=== PATIENT | male | born 1995 | race Caucasian/White ===

== ENCOUNTER 2018-03-24 13:20 | Emergency (ER) | payer BC ==
[2018-03-24 13:28] VITALS: RESP 18
[2018-03-24] MEDS ORDERED: SODIUM CHLORIDE 0.9% 1,000 ML IV STA (14:25)
[2018-03-24] MEDS ORDERED: PANTOPRAZOLE 40 MG/10 ML VIAL IVP STA (14:43)
[2018-03-24 15:17] LABS: Basophils # (A) 0.1 k/uL (0-0.2); Basophils % (A) 1 %; Eosinophils # (A) 0.3 k/uL (0-0.7); Eosinophils % (A) 4 %; HCT 49.9 % (39.0-53.0); HGB 16.7 gm/dL (13.0-17.5); Lymphocytes # (A) 1.5 k/uL (1.0-4.8); Lymphocytes % (A) 19 %; MCH 32.9 pg (25.0-35.0); MCHC 33.5 g/dL (31.0-37.0); MCV 98.1 fL (80.0-100.0); Mean Platelet Volume 6.7; Monocytes # (A) 0.6 k/uL (0-1.0); Monocytes % (A) 7 %; Neutrophils # (A) 5.4 k/uL (1.3-7.7); Neutrophils % (A) 67 %; Platelet Count 293 k/uL (150-450); RBC 5.09 m/uL (4.30-5.90); RDW 12.5 % (11.5-15.5)
[2018-03-24 15:31] LABS: ALT 161 U/L (21-72); AST 135 U/L (17-59); Albumin 4.6 g/dL (3.5-5.0); Alkaline Phosphatase 55 U/L (38-126); Amylase 46 U/L (30-110); Anion Gap 9 mmol/L; Blood Urea Nitrogen 11 mg/dL (9-20); Calcium 9.8 mg/dL (8.4-10.2); Carbon Dioxide 25 mmol/L (22-30); Chloride 107 mmol/L (98-107); Glucose 110 mg/dL (74-99); Lipase 97 U/L (23-300); Potassium 4.7 mmol/L (3.5-5.1); Sodium 141 mmol/L (137-145); Total Bilirubin 0.5 mg/dL (0.2-1.3); Total Protein 7.5 g/dL (6.3-8.2)
--- NOTE | 2018-03-24 16:10 | ED ---
General Adult HPI - General Chief complaint: GI Bleed Stated complaint: Blood in Stool Time Seen by Provider: 03/24/18 14:08 Source: patient, RN notes reviewed Mode of arrival: ambulatory Limitations: no limitations - History of Present Illness Initial comments: 23-year-old male presents to the emergency department for a chief complaint of vomiting blood. Patient states he drank too much alcohol last night. He states this morning he vomited twice. He states that after the second vomit he had some blood in his vomit. Patient states that it was about the amount of half a NyQuil. It was a dark red color. Patient admits he had dark stools 5 days ago but he has had these stools on and off for the past 15 years. Patient denies any abdominal pain. He denies any chest pain as well. Patient has no other complaints at this time including shortness of breath, chest pain, abdominal pain, headache, or visual changes. - Related Data Previous Rx's Medication Instructions Recorded Pantoprazole Sodium [Protonix] 20 mg PO BID #14 tablet. 03/24/18 Allergies Allergy/AdvReac Type Severity Reaction Status Date / Time No Known Allergies Allergy Verified 03/24/18 14:07 Review of Systems ROS Statement: Those systems with pertinent positive or pertinent negative responses have been documented in the HPI. ROS Other: All systems not noted in ROS Statement are negative. Past Medical History Past Medical History: No Reported History History of Any Multi-Drug Resistant Organisms: None Reported Past Surgical History: No Surgical Hx Reported Past Psychological History: No Psychological Hx Reported Smoking Status: Never smoker Past Alcohol Use History: Occasional Past Drug Use History: None Reported General Exam Limitations: no limitations General appearance: alert, in no apparent distress Head exam: Present: atraumatic, normocephalic, normal inspection Eye exam: Present: normal appearance, PERRL, EOMI. Absent: scleral icterus, conjunctival injection, periorbital swelling ENT exam: Present: normal exam, mucous membranes moist Neck exam: Present: normal inspection, full ROM. Absent: tenderness, meningismus, lymphadenopathy Respiratory exam: Present: normal lung sounds bilaterally. Absent: respiratory distress, wheezes, rales, rhonchi, stridor Cardiovascular Exam: Present: regular rate, normal rhythm, normal heart sounds. Absent: systolic murmur, diastolic murmur, rubs, gallop, clicks GI/Abdominal exam: Present: soft, normal bowel sounds. Absent: distended, tenderness, guarding, rebound, rigid Course Vital Signs 03/24/18 13:24 Temperature 99.3 F Pulse Rate 105 H Respiratory 18 Rate Blood Pressure 141/104 O2 Sat by Pulse 95 Oximetry Medical Decision Making - Medical Decision Making 23-year-old male presents to the emergency department for a chief complaint of hematemesis. Patient had one episode of vomiting dark red blood earlier today after a night of consuming alcohol. This was a small amount. Patient has a history of black stools with scissors has been ongoing for quite some time. CBC and CMP are unremarkable. Mild transaminitis likely related to alcohol consumption. Vitals are within physical limits. Patient is hemodynamically stable. Patient was given Protonix here in the emergency department. He will be given a prescription for home. He will return here if he has any worsening symptoms. He will follow up with GI in 1-2 days. - Lab Data Result diagrams: 03/24/18 15:00 03/24/18 15:00 Lab Results 03/24/18 03/24/18 Range/Units 15:00 15:00 WBC 8.0 (3.8-10.6) k/uL RBC 5.09 (4.30-5.90) m/uL Hgb 16.7 (13.0-17.5) gm/dL Hct 49.9 (39.0-53.0) % MCV 98.1 (80.0-100.0) fL MCH 32.9 (25.0-35.0) pg MCHC 33.5 (31.0-37.0) g/dL RDW 12.5 (11.5-15.5) % Plt Count 293 (150-450) k/uL Neutrophils % 67 % Lymphocytes % 19 % Monocytes % 7 % Eosinophils % 4 % Basophils % 1 % Neutrophils # 5.4 (1.3-7.7) k/uL Lymphocytes # 1.5 (1.0-4.8) k/uL Monocytes # 0.6 (0-1.0) k/uL Eosinophils # 0.3 (0-0.7) k/uL Basophils # 0.1 (0-0.2) k/uL Sodium 141 (137-145) mmol/L Potassium 4.7 (3.5-5.1) mmol/L Chloride 107 (98-107) mmol/L Carbon Dioxide 25 (22-30) mmol/L Anion Gap 9 mmol/L BUN 11 (9-20) mg/dL Creatinine 0.89 (0.66-1.25) mg/dL Est GFR (CKD-EPI)AfAm >90 (>60 ml/min/1.73 sqM) Est GFR (CKD-EPI)NonAf >90 (>60 ml/min/1.73 sqM) Glucose 110 H (74-99) mg/dL Calcium 9.8 (8.4-10.2) mg/dL Total Bilirubin 0.5 (0.2-1.3) mg/dL AST 135 H (17-59) U/L ALT 161 H (21-72) U/L Alkaline Phosphatase 55 (38-126) U/L Total Protein 7.5 (6.3-8.2) g/dL Albumin 4.6 (3.5-5.0) g/dL Amylase 46 (30-110) U/L Lipase 97 (23-300) U/L Disposition Clinical Impression: Hematemesis Disposition: HOME SELF-CARE Condition: Good Instructions (If sedation given, give patient instructions): Gastrointestinal Bleeding (ED) Additional Instructions: Please take prescription as directed. Please follow up with GI in 1-2 days. Please return to the emergency department if you have any worsening symptoms. Prescriptions: Pantoprazole Sodium [Protonix] 20 mg PO BID #14 tablet.dr Is patient prescribed a controlled substance at d/c from ED?: No Referrals: Wan Choi MD [STAFF PHYSICIAN] - 1-2 days Time of Disposition: 16:09
[2018-03-24 16:53] VITALS: BP 137/91; PULSE 80; TEMP 97.6
== END 2018-03-24 16:58 | disposition home or self-care (01) ==
LOC: EC 13:20
DX: K92.0 Hematemesis (principal); R74.0 Nonspecific elevation of levels of transaminase and lactic acid dehydrogenase [LDH]; Z87.19 Personal history of other diseases of the digestive system
CPT/HCPCS: 36415; 80053; 82150; 83690; 85025; 99284; 96374; 96361 ×2; C9113

== ENCOUNTER → 2019-09-30 | Outpatient (CLI) | payer BC | END | disposition home or self-care (01) | LOC: LABWHC1 11:43 | PROVIDERS: ATTEND Emergency Medicine | DX: Z20.828 Contact with and (suspected) exposure to other viral communicable diseases (principal) | CPT/HCPCS: U0003; C9803 ==

== ENCOUNTER 2022-02-09 18:44 | Emergency (ER) | payer BC ==
[2022-02-09] MEDS ORDERED: ACETAMINOPHEN TAB 500 MG TAB PO STA (19:41)
[2022-02-09] MEDS ORDERED: SODIUM CHLORIDE 0.9% 1,000 ML IV STA (19:41)
[2022-02-09] MEDS ORDERED: PANTOPRAZOLE 40 MG/10 ML VIAL IVP STA (19:42)
[2022-02-09] MEDS ORDERED: FAMOTIDINE 20 MG TAB PO STA (19:42)
[2022-02-09 20:12] LABS: Appearance,Urine Clear (Clear); Bilirubin,Urine Negative (Negative); Blood,Urine Negative (Negative); Color,Urine Yellow; Glucose,Urine (UA) Negative (Negative); Ketones,Urine Negative (Negative); Leukocyte Esterase,Urine Negative (Negative); Nitrite,Urine Negative (Negative); Protein,Urine Trace (Negative); Specific Gravity,Urine 1.021 (1.001-1.035); Urobilinogen,Urine <2.0 mg/dL (<2.0)
[2022-02-09 20:13] LABS: Basophils % (A) 1 %; Eosinophils # (A) 0.2 k/uL (0-0.7); Eosinophils % (A) 3 %; HCT 45.3 % (39.0-53.0); HGB 16.5 gm/dL (13.0-17.5); Lymphocytes # (A) 1.8 k/uL (1.0-4.8); Lymphocytes % (A) 26 %; MCHC 36.5 g/dL (31.0-37.0); MCV 98.7 fL (80.0-100.0); Mean Platelet Volume 7.6; Monocytes # (A) 0.5 k/uL (0-1.0); Monocytes % (A) 8 %; Neutrophils # (A) 4.2 k/uL (1.3-7.7); Neutrophils % (A) 61 %; Platelet Count 258 k/uL (150-450); RBC 4.59 m/uL (4.30-5.90); RDW 12.2 % (11.5-15.5); WBC 6.8 k/uL (3.8-10.6)
[2022-02-09 20:21] LABS: ALT 71 U/L (4-49); AST 96 U/L (17-59); African American GFR (CKD) >90 (>60 ml/min/1.73 sqM); Alkaline Phosphatase 52 U/L (38-126); Anion Gap 9 mmol/L; Blood Urea Nitrogen 13 mg/dL (9-20); Calcium 9.6 mg/dL (8.4-10.2); Carbon Dioxide 28 mmol/L (22-30); Chloride 104 mmol/L (98-107); Glucose 106 mg/dL (74-99); Lipase 118 U/L (23-300); Non-African American GFR(CKD) >90 (>60 ml/min/1.73 sqM); Potassium 3.7 mmol/L (3.5-5.1); Sodium 141 mmol/L (137-145); Total Bilirubin 1.2 mg/dL (0.2-1.3); Total Protein 8.2 g/dL (6.3-8.2)
--- NOTE | 2022-02-09 21:49 | CT ---
EXAMINATION TYPE: CT abdomen pelvis wo con CT DLP: 927.3 mGycm, Automated exposure control for dose reduction was used. DATE OF EXAM: 02/09/2022 8:50 PM COMPARISON: None CLINICAL INDICATION:Male, 26 years old with history of LUQ/left flank pain; LUQ/left flank pain TECHNIQUE: Axial CT of the abdomen and pelvis. Sagittal and coronal reformats were created on a [employer] workstation. Contrast used: None Oral contrast used: without Oral Contrast FINDINGS: LOWER CHEST: Unremarkable ABDOMEN LIVER: Unremarkable GALLBLADDER AND BILE DUCTS: Unremarkable. PANCREAS: Unremarkable. SPLEEN: Small splenule is present. ADRENAL GLANDS: Unremarkable. KIDNEYS AND URETERS: No evidence of hydronephrosis or renal calculus. The ureters are unremarkable. PELVIS BLADDER: Unremarkable REPRODUCTIVE: Unremarkable. ABDOMEN & PELVIS STOMACH AND BOWEL: No evidence of bowel obstruction. Second portion duodenal diverticulum. Appendix i s normal. PERITONEUM: No evidence of pneumoperitoneum or free fluid. VASCULATURE: No evidence of aortic aneurysm. MUSCULOSKELETAL: No acute osseous abnormalities LYMPH NODES: No gross evidence for lymphadenopathy. SOFT TISSUE/ABDOMINAL WALL: Fat-containing umbilical hernia. IMPRESSION: No acute intra-abdominal process to explain the patient's left upper quadrant pain/left flank pain. N o obstructive uropathy or renal urolithiasis.
--- NOTE | 2022-02-09 22:42 | ED ---
Abdominal Pain HPI - General Chief Complaint: Abdominal Pain Stated Complaint: Abd Pain Time Seen by Provider: 02/09/22 19:15 Source: patient Mode of arrival: ambulatory - History of Present Illness Initial Comments: Vision is a 18-year-old male who presents to the emergency department with a chief complaint of left side pain. Symptoms started yesterday. Patient states that he feels a constant mild "pressure" in his left side that radiates to his upper left abdomen. He also reports consistent numbness down his left arm. Denies injury. He denies neck and back pain. Patient taking Motrin 600 often. Denies fever, chills, nausea, vomiting, constipation, diarrhea, burning with urination, trouble urinating, blood in the urine. Patient reports drinking about 10 beers a day for the past 6 months. Last drink was this morning. He denies tobacco and illicit drug use. - Related Data Previous Rx's Medication Instructions Recorded Pantoprazole Sodium [Protonix] 20 mg PO BID #14 tablet. 03/24/18 Cyclobenzaprine [Flexeril] 5 mg PO HS PRN #5 tablet 02/09/22 Allergies Allergy/AdvReac Type Severity Reaction Status Date / Time No Known Allergies Allergy Verified 02/09/22 19:08 Review of Systems ROS Statement: Those systems with pertinent positive or pertinent negative responses have been documented in the HPI. ROS Other: All systems not noted in ROS Statement are negative. Past Medical History Past Medical History: No Reported History History of Any Multi-Drug Resistant Organisms: None Reported Past Surgical History: No Surgical Hx Reported Past Psychological History: No Psychological Hx Reported Smoking Status: Never smoker Past Alcohol Use History: Occasional Past Drug Use History: None Reported General Exam General appearance: alert, in no apparent distress Head exam: Present: atraumatic, normocephalic, normal inspection Eye exam: Present: normal appearance, PERRL, EOMI. Absent: scleral icterus, conjunctival injection, periorbital swelling Respiratory exam: Present: normal lung sounds bilaterally. Absent: respiratory distress, wheezes, rales, rhonchi, stridor Cardiovascular Exam: Present: regular rate, normal rhythm, normal heart sounds. Absent: systolic murmur, diastolic murmur, rubs, gallop, clicks GI/Abdominal exam: Present: soft, normal bowel sounds. Absent: distended, tenderness, guarding, rebound, rigid Back exam: Present: CVA tenderness (L) (minimal ). Absent: CVA tenderness (R), paraspinal tenderness, vertebral tenderness Neurological exam: Present: alert, oriented X3, CN II-XII intact Psychiatric exam: Present: normal affect, normal mood Skin exam: Present: warm, dry, intact, normal color. Absent: rash Course Vital Signs 02/09/22 02/09/22 19:06 23:00 Temperature 98.4 F 98.5 F Pulse Rate 82 67 Respiratory 16 18 Rate Blood Pressure 143/92 137/93 O2 Sat by Pulse 98 98 Oximetry Medical Decision Making - Medical Decision Making This is a 26-year-old presenting with left flank pain. Patient reports her nonspecific symptoms, kidney stone and muscle strain are on the differential. He does not have history of kidney stone. The abdomen is soft and nontender. There is minimal left CVA tenderness. Laboratory studies obtained. There is no leukocytosis. Kidney function is normal. Urinalysis does not reveal infection or blood. CT of the abdomen and pelvis without contrast obtained and interpreted by me which shows no acute intra-abdominal process including obstructive uropathy and renal urolithiasis. Pain controlled. At this time there are no diagnostic studies to explain patien t's symptoms. Possibly related to muscle strain. Patient will be discharged with her a short course of muscle relaxers. I did educate patient about the importance of alcohol cessation. He will follow-up with his primary care provider. Dr. Szymanski is my attending. - Lab Data Result diagrams: 02/09/22 19:49 02/09/22 19:49 Lab Results 02/09/22 02/09/22 02/09/22 Range/Units 19:49 19:49 19:49 WBC 6.8 (3.8-10.6) k/uL RBC 4.59 (4.30-5.90) m/uL Hgb 16.5 (13.0-17.5) gm/dL Hct 45.3 (39.0-53.0) % MCV 98.7 (80.0-100.0) fL MCH 36.0 H (25.0-35.0) pg MCHC 36.5 (31.0-37.0) g/dL RDW 12.2 (11.5-15.5) % Plt Count 258 (150-450) k/uL MPV 7.6 Neutrophils % 61 % Lymphocytes % 26 % Monocytes % 8 % Eosinophils % 3 % Basophils % 1 % Neutrophils # 4.2 (1.3-7.7) k/uL Lymphocytes # 1.8 (1.0-4.8) k/uL Monocytes # 0.5 (0-1.0) k/uL Eosinophils # 0.2 (0-0.7) k/uL Basophils # 0.0 (0-0.2) k/uL Sodium 141 (137-145) mmol/L Potassium 3.7 (3.5-5.1) mmol/L Chloride 104 (98-107) mmol/L Carbon Dioxide 28 (22-30) mmol/L Anion Gap 9 mmol/L BUN 13 (9-20) mg/dL Creatinine 0.85 (0.66-1.25) mg/dL Est GFR (CKD-EPI)AfAm >90 (>60 ml/min/1.73 sqM) Est GFR (CKD-EPI)NonAf >90 (>60 ml/min/1.73 sqM) Glucose 106 H (74-99) mg/dL Calcium 9.6 (8.4-10.2) mg/dL Total Bilirubin 1.2 (0.2-1.3) mg/dL AST 96 H (17-59) U/L ALT 71 H (4-49) U/L Alkaline Phosphatase 52 (38-126) U/L Total Protein 8.2 (6.3-8.2) g/dL Albumin 5.0 (3.5-5.0) g/dL Lipase 118 (23-300) U/L Urine Color Yellow Urine Appearance Clear (Clear) Urine pH 7.0 (5.0-8.0) Ur Specific [place] 1.021 (1.001-1.035) Urine Protein Trace H (Negative) Urine Glucose (UA) Negative (Negative) Urine Ketones Negative (Negative) Urine Blood Negative (Negative) Urine Nitrite Negative (Negative) Urine Bilirubin Negative (Negative) Urine Urobilinogen <2.0 (<2.0) mg/dL Ur Leukocyte Esterase Negative (Negative) - EKG Data EKG Comments: EKG taken at 19:52, interpreted by me Sinus rhythm, no ST segment or T-wave abnormalities Ventricular rate 72 KS interval 144 QRS duration 104 QTC 409 Disposition Clinical Impression: Left flank pain Disposition: HOME SELF-CARE Condition: Good Additional Instructions: Take medication as directed. Do not drink alcohol or operate machinery while taking Flexeril as a can make you sleepy and cause decreased breathing. Follow up with primary care provider in one to 2 days. Return to the emergency department if you experience new, concerning, or worsening symptoms. Prescriptions: Cyclobenzaprine [Flexeril] 5 mg PO HS PRN #5 tablet PRN Reason: Muscle Spasm Is patient prescribed a controlled substance at d/c from ED?: No Referrals: Berhane Victor MD [Primary Care Provider] - 1-2 days Time of Disposition: 22:42
[2022-02-09 23:07] VITALS: BP 137/93; PULSE 67; RESP 18; TEMP 98.5
== END 2022-02-09 23:05 | disposition home or self-care (01) ==
LOC: EC 18:44
DX: R10.12 Left upper quadrant pain (principal)
CPT/HCPCS: 36415; 93005; 80053; 83690; 85025; 81003; 74176; 99284; 96374; 96361; C9113

== ENCOUNTER → 2022-09-21 | Outpatient (CLI) | payer BC ==
--- NOTE | 2022-09-21 19:25 | XR ---
EXAMINATION TYPE: XR skull complete DATE OF EXAM: 09/21/2022 4:07 PM INDICATION: Patient age:Male; 27 years old; Reason for study: R51.0; [facility]. COMPARISON: None. TECHNIQUE: 4 frontal and bilateral lateral and posterior views of the skull. FINDINGS: No evidence to suggest radiopaque foreign body. Soft tissues and osseous structures are within norm al limits. Paranasal sinuses appear relatively clear. IMPRESSION: No evidence of radiopaque foreign body.
== END | disposition home or self-care (01) ==
LOC: RADXRMAIN 15:44
PROVIDERS: ATTEND Family Medicine
DX: R51.0 Headache with orthostatic component, not elsewhere classified (principal)
CPT/HCPCS: 70260